=== PATIENT | male | born 1960 | race Caucasian/White ===

== ENCOUNTER 2018-01-09 05:53 | Inpatient (IN) | payer OTHER ==
[~2018-01-09] VITALS: Ht 185.4 cm; Wt 87.1 kg
[2018-01-09] VITALS (12 sets, daily range): BP systolic 104–134; BP diastolic 51–88
[2018-01-09] MEDS ORDERED: oxyCONTIN 20mg tab ORAL SCH (06:00)
[2018-01-09] MEDS ORDERED: ceFAZolin 1gm in D5W 55ml IVP ONE (06:00)
[2018-01-09] MEDS ORDERED: celeBREX 200mg Cap **SURGERY PATIENTS ONLY ORAL SCH (06:00)
--- NOTE | 2018-01-09 06:06 | Anethesia Preoperative Eval ---
Anesthesia Pre-op PMH/ROS General Date of Evaluation: Jan 09, 2018 Anesthesiologist: Andre ASA Score: ASA 2 Mallampati Score Class I : Soft palate, uvula, fauces, pillars visible Class II: Soft palate, uvula, fauces visible Class III: Soft palate, base of uvula visible Class IV: Only hard plate visible Mallampati Classification: Class II Surgeon: Ines Diagnosis: Right hip OA Surgical Procedure: Right total hip arthroplasty Anesthesia History: none Family History: no anesthesia problems Allergies: Coded Allergies: No Known Allergies (Unverified , 01/08/18) Medications: see eMAR Past Medical History Cardiovascular: Reports: HTN; Denies: CAD, DC, valve dz, arrhythmia, other Pulmonary: Denies: asthma, COPD, ADRIANNE, other Gastrointestinal/Genitourinary: Denies: GERD, CRI, ESRD, other Neurologic/Psychiatric: Denies: dementia, CVA, depression/anxiety, TIA, other Endocrine: Denies: DM, hypothyroidism, steroids, other HEENT: Denies: cataract (L), cataract (R), glaucoma, [place] (L), [place] (R), other Hematology/Immune: Reports: other - HIV, hep B; Denies: anemia, DVT, bleeding disorder Musculoskeletal/Integumentary: Reports: OA; Denies: RA, DJD, DDD, edema, other Anesthesia Pre-op Phys. Exam Physician Exam see chart Constitutional: NAD Cardiovascular: RRR Respiratory: CTA Airway Exam Mallampati Score: Class II MO: full ROM: full Teeth: intact Anesthesia Pre-op A/P Labs see chart Studies Pre-op Studies: EKG - sr Risk Assessment & Plan Assessment: ASA II Plan: SAB with GA Status Change Before Surgery: No Pre-Antibiotics Drug: Ancef 2g Given Within 1 Hr of Incision: Yes Connie Toscano MD Jan 09, 2018 06:06
[2018-01-09] MEDS ORDERED: Bacitracin 50000 Units Vial ONE (06:37)
[2018-01-09] MEDS ORDERED: NeoSporin Gu Irrig 1ml Amp IRRIG ONE (06:37)
[2018-01-09] MEDS ORDERED: Midazolam 2mg/2ml Inj ONE (06:41)
[2018-01-09] MEDS ORDERED: fentaNYL 100 mcg/2 mL IV ONE (06:41)
[2018-01-09] MEDS ORDERED: Propofol 200mg/20ml IV ONE (06:41)
[2018-01-09] MEDS ORDERED: Lidocaine 1% MPF 10mg/ml 5ml ONE (06:41)
[2018-01-09] MEDS ORDERED: cloNIDine 1000mcg/10ml inj ONE (06:45)
[2018-01-09] MEDS ORDERED: EPINEPHrine 1mg/1ml Amp ONE ×2 (06:45→07:00)
[2018-01-09] MEDS ORDERED: Zemuron 50mg/5ml Inj IV ONE (06:49)
[2018-01-09] MEDS ORDERED: Succinylcholine 20mg/ml 10ml vial ONE (06:49)
[2018-01-09] MEDS ORDERED: Bupivacaine 0.5% Inj 30 ml vial INJ ONE ×2 (06:49→07:01)
--- NOTE | 2018-01-09 06:52 | Pre-Procedure Note/Attestation ---
Pre-Procedure Note/Attestation Complete Prior to Procedure Planned Procedure: right Procedure Narrative: rt JUDI Indications for Procedure Pre-Operative Diagnosis: Rt hip arthritis Attestation I attest that I discussed the nature of the procedure; its benefits; risks and complications; and alternatives (and the risks and benefits of such alternatives ), prior to the procedure, with the patient (or the patient's legal registered representative). I attest that, if there was a reasonable possibility of needing a blood transfusion, the patient (or the patient's legal registered representative) was given the [facility] standardized written summary, pursuant to the [employer] Blood Safety Act ([place] Health and Safety Code # 1645, as amended). I attest that I re-evaluated the patient just prior to the surgery and that there has been no change in the patient's H&P, except as documented below: NONE Alirio Chacon MD Jan 09, 2018 06:52
[2018-01-09] MEDS ORDERED: Morphine Sulfate 2mg/ml Inj IVP PRN (07:00)
[2018-01-09] MEDS ORDERED: Sterile Water Irrig 1000ml IRRIG ONE (07:00)
[2018-01-09] MEDS ORDERED: Morphine Sulfate 4mg/ml Inj IVP PRN (07:00)
[2018-01-09] MEDS ORDERED: Milk of Magnesia 30ml Ud ORAL PRN (07:00)
[2018-01-09] MEDS ORDERED: LR 1000ml ONE (07:00)
[2018-01-09] MEDS ORDERED: NS Irrig 1000ml ONE (07:00)
[2018-01-09] MEDS ORDERED: ATORVASTATIN CA10 MG ORAL (07:06)
[2018-01-09] MEDS ORDERED: ODEFSEY PO (07:06)
[2018-01-09] MEDS ORDERED: LISINOPRIL20 MG ORAL (07:06)
[2018-01-09] MEDS ORDERED: LR 1000ml 1,000 ML IVLG SCH (07:41)
[2018-01-09] MEDS ORDERED: fentaNYL 100 mcg/2 mL IV PRN (07:45)
[2018-01-09] MEDS ORDERED: DiphenhydrAMINE 50mg/ml Inj IVP PRN (07:45)
[2018-01-09] MEDS ORDERED: Hydromorphone 0.5mg/0.5ml inj IVP PRN (07:45)
[2018-01-09] MEDS ORDERED: Labetalol 5mg/ml 20ml vial IV PRN (07:45)
[2018-01-09] MEDS ORDERED: Tranexamic Acid 1,000 MG in NS 65 ML IVPB ONE (08:00)
[2018-01-09] MEDS ORDERED: ePHEDrine 50mg/ml Inj ONE (08:03)
[2018-01-09] MEDS: Docusate 100mg cap ORAL SCH ×3 (09:00→18:00)
--- NOTE | 2018-01-09 09:29 | Brief Operative Note ---
Immediate Post Operative Note Operative Note Chief Complaint: rt hip pain Pre-op Diagnosis: rt hip arthritis Procedure: rt JUDI Post-op Diagnosis: same as pre-op Findings: consistent w/pre-op dx studies Surgeon: md xander Home Office Representative: cheryl monroy Anesthesiologist: md iraida Anesthesia: general Specimen: yes Complications: none Condition: stable Fluids: ns Estimated Blood Loss: minimal Drains: none Implant(s) used?: Yes - orourke and nephGay Martin Jan 09, 2018 09:29
--- NOTE | 2018-01-09 09:37 | Immediate Post-Op Evaluation ---
Immediate Post-Op Evalulation Immediate Post-Op Evalulation Procedure: Right total hip replacement Date of Evaluation: Jan 09, 2018 Time of Evaluation: 09:38 IV Fluids: 2.2L Blood Products: 0 Estimated Blood Loss: 150 Urinary Output: 150 Blood Pressure Systolic: 113 Blood Pressure Diastolic: 51 Pulse Rate: 59 Respiratory Rate: 14 O2 Sat by Pulse Oximetry: 100 Temperature (Fahrenheit): 97 Pain Score (1-10): 0 Nausea: No Vomiting: No Complications 0 Patient Status: awake, reacts, patent, none Hydration Status: adequate Drug: Ancef 2g Given Within 1 Hr of Incision: Yes Time Given: 07:20 Connie Tsocano MD Jan 09, 2018 09:37
--- NOTE | 2018-01-09 10:47 | Diagnostic Imaging Report ---
Indication: Status post right hip replacement Findings: Single AP view of the pelvis was performed. Right total hip arthroplasty demonstrated. Alignment and position on the basis of this single projection is unremarkable. Soft tissue air noted. Gallardo catheter is present. IMPRESSION: Status post right total hip arthroplasty
--- NOTE | 2018-01-09 10:58 | Diagnostic Imaging Report ---
Indication: Intraoperative imaging during right hip arthroplasty Findings: Single AP view of the pelvis was performed. Single portable partial image of the pelvis showing right hip during hip replacement surgery. There is a femoral spacer noted. Acetabular cup is in place. IMPRESSION: Intraoperative imaging
--- NOTE | 2018-01-09 11:30 | Operative Note - Dictated ---
DATE OF OPERATION: 01/09/2018 PREOPERATIVE DIAGNOSIS: Right hip end-stage arthritis. POSTOPERATIVE DIAGNOSIS: Right hip end-stage arthritis. PROCEDURE: Right total hip arthroplasty using Rice and Nephew system, size 54 R3 cup, size 7 Anthology stem, 20 mm lipped ultra cross-linked poly, with 2 dome screws, and a 36 mm+4 Oxinium head standard offset. SURGEON: Alirio Chacon M.D. HORSE RACE STARTER: Gay Mercer PA-C. ANESTHESIOLOGIST: Dr. Powell. ANESTHESIA: Spinal anesthesia. ESTIMATED BLOOD LOSS: Less than 20 mL. COMPLICATIONS: None. BRIEF HISTORY: The patient is a very pleasant 57-year-old gentleman, who has had ongoing right hip pain. He has had arthritis. He has had difficulty with ambulation. He has failed nonoperative treatment including injection, physical therapy, anti-inflammatories. After full discussion of the risks and benefits of the surgery and complications associated with it including infection, bleeding, neurovascular complication, possibility of continued pain, possibility of leg length discrepancy, DVT, need for revision surgery, infection requiring resection arthroplasty, PEs as well as neurological complications as well as need for revision surgeries due to wear, he opted for surgical treatment as described above. OPERATIVE PROCEDURE: The patient was brought to the operating table and was placed supine. Spinal anesthesia was induced and the patient was placed in left lateral decubitus position with the right hip up. All pressure points were well-padded and he was stabilized with peg holes. The right hip was prepped and draped in usual sterile fashion. Time-out was performed and preop antibiotics were given and tranexamic acid was given. Standard posterolateral approach to the hip was undertaken. The incision was taken through the subcutaneous tissue. The tensor fascia was opened and gluteus landon fascia was opened. Charnley retractors were placed in. The short external rotators were released and piriformis was released, and capsule was T'd. The capsules were tagged with #2 FiberWire suture for later closure. Once this was completed, the hip was dislocated. A standard neck cut was performed without any complication. At this point, the acetabular retractors were placed in and the labrum was resected. Sequential reaming was performed initially medializing slightly and then subsequently enlarging the reamers to a final size of 54 mm reamer. This provided excellent separation of the acetabulum, excellent contact with acetabular wall, and at this point, trialing with size 54 was performed and there was excellent fit and excellent stability. Approximately, 40 degrees of anteversion and 45 degrees of inclination was provided. Once this was completed, an R3 cup was then placed in with adequate anteversion and inclination as described and there was excellent stability. Two dome screws were placed in, one 25 mm and one 20 mm. Once this was completed, the acetabulum was then thoroughly irrigated using copious amount of fluid and using a 20-degree lip ultra cross-linked poly was then locked in without any complications. This provided excellent stability, it was checked and rechecked, and acetabular polyethylene had engaged well and there was no dislodging. Once this was completed, care was given to the femur. The acetabular retractors were removed. The femur was internally rotated. Calvert retractors were placed. Initially, canal finding was placed after lateralized entry and subsequently sequential broaching was performed from 0 to size 7. Size 7 provided excellent axial and rotational stability. Calcar reaming was performed and standard neck and initially a 0 length neck and subsequently a +4 neck was used. The +4 neck appeared to be excellent size. There was excellent leg length and good stability at 0, 30 degrees, 45 degrees, and 70 degrees internal rotation with hip in neutral abduction. At this point, leg lengths checked as measured by the knee and heel, and there was excellent. There was no pistoning. The range of motion was excellent. Stability was excellent. At this point, all wounds were thoroughly irrigated. Intraoperative x-rays were obtained and canal appeared to be filled, anteversion, inclination, and canal fill and all implant placement was excellent. At this point, the trial implants were removed. The wounds were thoroughly irrigated and femur and acetabular cup were completely irrigated using Simpulse irrigation. At this point, the actual size 7 Anthology standard offset implant was then placed in about 10 degrees of anteversion without any complications. Once this was well-seated, a +4 Oxinium head was used and this was locked and the Helton taper was dried. This was locked in without any complications. At this point, the entire construct was reduced and range of motion, leg length stability were all checked and appeared to be perfect as described previously. At this point, all wounds were thoroughly irrigated again with Simpulse irrigation. The short external rotators and capsule was closed through drill holes into the greater trochanter. The tensor fascia was closed using #1 Vicryl suture. Skin was closed using 2-0 Vicryl suture and 3-0 Monocryl suture. Steri-Strips were applied and Dermabond was applied. The patient tolerated the procedure well without any complication and an abduction pillow was placed and the patient was placed on the operating room table without any complication and was taken to recovery room in stable condition. All lap counts and instrument counts were correct. Alirio Francisca Chacon DR: Lenny JOB#: [id number] CC:
[2018-01-09] MEDS ORDERED: D5 1/2NS w/KCl 20mEq 1,000 ML IV SCH (14:00)
[2018-01-09] MEDS: ceFAZolin 2gm/50ml Premix 50 ML IV SCH ×2 (14:14→23:30)
[2018-01-09] MEDS: Morphine Sulfate 2mg/ml Inj IVP PRN ×3 (14:31→21:59)
--- NOTE | 2018-01-09 19:49 | Consultation ---
History of Present Illness General Date patient seen: Jan 09, 2018 Time patient seen: 19:46 Chief Complaint: medical post op consult. Present Illness Allergies: Coded Allergies: No Known Allergies (Unverified , 01/08/18) Medication History Scheduled Atorvastatin Calcium* (Lipitor*), 10 MG ORAL BEDTIME, (Reported) Lisinopril (Lisinopril*), 20 MG ORAL DAILY, (Reported) [Odefsey], PO SERA, (Reported) Patient History Healthcare decision maker [employer]OVANNI[employer]NER Resuscitation status Full Code Advanced Directive on File Past Medical/Surgical History Past Medical/Surgical History: (1) Hypertension (2) HIV (human immunodeficiency virus infection) Review of Systems Constitutional: Reports: no symptoms Eye: Reports: no symptoms ENT: Reports: no symptoms Respiratory: Reports: no symptoms Cardiovascular: Reports: no symptoms Gastrointestinal: Reports: no symptoms ROS Narrative has guadalupe epain social history: works in [employer] no aalcohol abuse medicaiton: lisnipril lipitor odefsui hiv med Physical Exam General Appearance: WD/WN, no apparent distress HEENT: normocephalic, atraumatic Neck: normal alignment Respiratory/Chest: lungs clear Cardiovascular/Chest: normal rate, regular rhythm, no JVD Abdomen: non tender, soft Extremities: other - no edema Last 24 Hour Vital Signs Date Time Temp Pulse Resp B/P (MAP) Pulse Ox O2 Delivery O2 Flow Rate FiO2 01/09/18 16:00 98.0 83 18 124/62 (82) 100 98.0 01/09/18 12:00 98.0 72 19 121/81 (94) 95 98.0 01/09/18 11:00 97.2 53 19 107/70 (82) 100 97.2 01/09/18 10:25 98.2 61 22 113/62 100 Nasal Cannula 3 98.2 01/09/18 10:15 59 15 107/60 100 Nasal Cannula 3 01/09/18 10:00 56 16 106/60 100 Nasal Cannula 3 01/09/18 09:50 60 18 106/57 100 Nasal Cannula 3 01/09/18 09:43 62 15 104/60 100 Simple Mask 6 01/09/18 09:38 53 21 105/63 100 Simple Mask 6 01/09/18 09:37 206.6 59 14 100 01/09/18 09:33 97.0 59 14 113/51 100 Simple Mask 6 97.0 01/09/18 06:30 98.1 64 20 134/88 (103) 95 98.1 01/09/18 06:24 Room Air Height (Feet): 6 Height (Inches): 1.00 Weight (Pounds): 192 Medications Current Medications Medications (Trade) Dose Ordered Sig/Stan Route PRN Reason Start Time Stop Time Status Last Admin Dose Admin Acetaminophen (Tylenol) 650 mg Q4H PRN ORAL Mild Pain (Pain Scale 1-3) 01/09/18 07:00 02/08/18 06:59 Acetaminophen (Tylenol) 650 mg Q4H PRN ORAL temp>100 01/09/18 07:00 02/08/18 06:59 Acetaminophen/ Hydrocodone Bitart (Telephone 5/325) 2 tab Q6H PRN ORAL Severe Pain (Pain Scale 7-10) 01/09/18 07:00 01/16/18 06:59 Acetaminophen/ Hydrocodone Bitart (Telephone 7.5/325) 1 tab Q4H PRN ORAL Moderate Pain (Pain Scale 4-6) 01/09/18 07:00 01/16/18 06:59 Cefazolin Sodium 50 ml @ 100 mls/hr Q8H IV 01/09/18 15:00 01/09/18 23:29 01/09/18 14:14 Celecoxib (CeleBREX) 200 mg DAILY ORAL 01/10/18 09:00 02/09/18 08:59 Docusate Sodium (Colace) 100 mg THREE TIMES A DAY ORAL 01/09/18 09:00 02/08/18 08:59 Enoxaparin Sodium (Lovenox) 40 mg DAILY SUBQ 01/10/18 09:00 02/09/18 08:59 Ferrous Sulfate (Feosol) 325 mg THREE TIMES A DAY ORAL 01/09/18 13:00 02/08/18 12:59 01/09/18 18:10 Magnesium Hydroxide (Mom) 30 ml DAILYPRN PRN ORAL Constipation 01/09/18 07:00 02/08/18 06:59 Morphine Sulfate (Morphine Sulfate) 1 mg Q3H PRN IVP Pain scale 1-3 01/09/18 07:00 01/16/18 06:59 Morphine Sulfate (Morphine Sulfate) 2 mg Q3H PRN IVP Moderate Pain (Pain Scale 4-6) 01/09/18 07:00 01/16/18 06:59 01/09/18 18:11 Morphine Sulfate (Morphine Sulfate) 4 mg Q3H PRN IVP Severe Pain (Pain Scale 7-10) 01/09/18 07:00 01/16/18 06:59 Oxycodone HCl (OxyCONTIN) 20 mg EVERY 12 HOURS ORAL 01/09/18 21:00 01/16/18 20:59 Prochlorperazine (Compazine) 10 mg Q6H PRN IVP Nausea & Vomiting 01/09/18 07:00 02/08/18 06:59 Temazepam (Restoril) 15 mg HSPRN PRN ORAL Insomnia 01/09/18 07:00 01/16/18 06:59 Assessment/Plan Status Narrative s/p thr hyperteniosn hyperlipid HIV Assessment/Plan perioperative antibiotic prophylaxis paincontorl PT OT DVT PROPHYLAXIS will moniitor [place] ok to take hiv medicaiton from home if not on forumulary. Wilmar Moreno MD Jan 09, 2018 19:49
[2018-01-09] MEDS: oxyCONTIN 20mg tab ORAL SCH (20:56)
[2018-01-10 00:18] VITALS: BP 122/72
[2018-01-10 04:02] VITALS: BP 127/73
[2018-01-10 07:50] LABS: BASOPHILS % (AUTO) 0.5 % (0.0-2.0); EOSINOPHILS % (AUTO) 0.4 % (0.0-3.0); HEMATOCRIT 36.8 % (42.0-52.0); HEMOGLOBIN 13.4 G/DL (14.2-18.0); LYMPHOCYTES % (AUTO) 15.2 % (20.0-45.0); MEAN CORPUSCULAR VOLUME 91 FL (80-99); MONOCYTES % (AUTO) 10.2 % (1.0-10.0); NEUTROPHILS % (AUTO) 73.8 % (45.0-75.0); PLATELET COUNT 170 K/UL (150-450); RED BLOOD COUNT 4.05 M/UL (4.70-6.10); RED CELL DISTRIBUTION WIDTH 10.3 % (11.6-14.8); WHITE BLOOD COUNT 7.7 K/UL (4.8-10.8)
[2018-01-10 07:53] LABS: ANION GAP 7 mmol/L (5-15); BLOOD UREA NITROGEN 14 mg/dL (7-18); CALCIUM 8.1 MG/DL (8.5-10.1); CARBON DIOXIDE 28 MMOL/L (21-32); CHLORIDE 105 MMOL/L (98-107); CREATININE 0.7 MG/DL (0.55-1.30); POTASSIUM 3.8 MMOL/L (3.5-5.1); SODIUM 140 MMOL/L (136-145)
[2018-01-10 08:00] VITALS: BP 121/81
--- NOTE | 2018-01-10 08:10 | Orthopedic Progress Note ---
Orthopedic - Progress Note Subjective Symptoms: c/o post-op hip pain, other - working with PT Objective Vital Signs Laboratory Tests Test 01/10/18 06:40 White Blood Count Pending Red Blood Count Pending Hemoglobin Pending Hematocrit Pending Mean Corpuscular Volume Pending Mean Corpuscular Hemoglobin Pending Mean Corpuscular Hemoglobin Concent Pending Red Cell Distribution Width Pending Platelet Count Pending Mean Platelet Volume Pending Neutrophils (%) (Auto) Pending Lymphocytes (%) (Auto) Pending Monocytes (%) (Auto) Pending Eosinophils (%) (Auto) Pending Basophils (%) (Auto) Pending Sodium Level 140 MMOL/L (136-145) Potassium Level 3.8 MMOL/L (3.5-5.1) Chloride Level 105 MMOL/L (98-107) Carbon Dioxide Level 28 MMOL/L (21-32) Anion Gap 7 mmol/L (5-15) Blood Urea Nitrogen 14 mg/dL (7-18) Creatinine 0.7 MG/DL (0.55-1.30) Estimat Glomerular Filtration Rate > 60 mL/min (>60) Glucose Level 106 MG/DL (74-106) Calcium Level 8.1 MG/DL (8.5-10.1) L Last 24 Hour Vital Signs Date Time Temp Pulse Resp B/P (MAP) Pulse Ox O2 Delivery O2 Flow Rate FiO2 01/10/18 04:02 97.9 85 18 127/73 (91) 95 97.9 01/10/18 00:18 98.1 69 17 122/72 (89) 94 98.1 01/09/18 21:00 Room Air 01/09/18 20:25 97.9 74 18 127/69 (88) 94 97.9 01/09/18 16:00 98.0 83 18 124/62 (82) 100 98.0 01/09/18 12:00 98.0 72 19 121/81 (94) 95 98.0 01/09/18 11:00 97.2 53 19 107/70 (82) 100 97.2 01/09/18 10:25 98.2 61 22 113/62 100 Nasal Cannula 3 98.2 01/09/18 10:15 59 15 107/60 100 Nasal Cannula 3 01/09/18 10:00 56 16 106/60 100 Nasal Cannula 3 01/09/18 09:50 60 18 106/57 100 Nasal Cannula 3 01/09/18 09:43 62 15 104/60 100 Simple Mask 6 01/09/18 09:38 53 21 105/63 100 Simple Mask 6 01/09/18 09:37 206.6 59 14 100 01/09/18 09:33 97.0 59 14 113/51 100 Simple Mask 6 97.0 I&O Intake and Output 01/09/18 01/10/18 19:00 07:00 Intake Total 2700 ml 530 ml Output Total 1850 ml 900 ml Balance 850 ml -370 ml Intake Oral 200 ml 480 ml IV Total 2400 ml 50 ml Other 100 ml Output Urine Total 1700 ml 900 ml Stool Total 0 ml Estimated Blood Loss 150 ml # Voids 1 Wound: clean, dry, intact Drains: none Neuro Status: normal Vascular Status: normal Additional Comments Xray reviewed- excellent Assessment Post-op Diagnosis POD 1 Procedure Performed rt JUDI Plan Plan: PT, pain management, discharge plan - to home with services and DME on Monday Gay Mercer Jan 10, 2018 08:10
--- NOTE | 2018-01-10 08:16 | 48 Hour Post Anesthesia Eval ---
Post Anesthesia Evaluation Procedure: Right total hip replacement Date of Evaluation: Jan 10, 2018 Time of Evaluation: 07:15 Blood Pressure Systolic: 127 0: 73 Pulse Rate: 85 Respiratory Rate: 18 Temperature (Fahrenheit): 97.9 O2 Sat by Pulse Oximetry: 95 Airway: patent Nausea: No Vomiting: No Pain Intensity: 2 Hydration Status: adequate Cardiopulmonary Status: at [place] Mental Status/LOC: patient returned to baseline Post-Anesthesia Complications: 0 Follow-up care needed: N/A - further care as per primary team Connie Toscano MD Jan 10, 2018 08:16
[2018-01-10] MEDS: Lisinopril 20mg tab ORAL SCH (09:00)
[2018-01-10] MEDS: oxyCONTIN 20mg tab ORAL SCH ×2 (09:00→21:31)
[2018-01-10] MEDS: Docusate 100mg cap ORAL SCH ×3 (09:00→18:20)
[2018-01-10] MEDS: celeBREX 200mg Cap **SURGERY PATIENTS ONLY ORAL SCH (09:01)
[2018-01-10] MEDS: Enoxaparin 40mg Inj SUBQ SCH (09:06)
[2018-01-10 12:00] VITALS: BP 129/79
[2018-01-10] MEDS: HYDROcodone/Acetamin 7.5/325 tab ORAL PRN (12:58)
[2018-01-10 16:00] VITALS: BP 133/78
[2018-01-10 20:00] VITALS: BP 132/78
--- NOTE | 2018-01-10 21:41 | Consultation ---
Consult Note Consult Note patient is s/p totalhip arthroplasty leonides any ches tpain denies any headache has somepain nonausea no vomiting AVSS no jvd cta s1,s2,rrr sofft Assessment/Plan s/p THrR perioperative blood loss HIV PT Ot dvt prophyalxis yunjderstands not to suibmerge body under water till 3 months after surgery perioperative prophylaxis given AAOs sera procedure antibiotic prophylaxis guide line discussed. doing well. Wilmar Moreno MD Jan 10, 2018 21:41
[2018-01-11] VITALS: BP 129/76
[2018-01-11] MEDS: HYDROcodone/Acetamin 7.5/325 tab ORAL PRN ×2 (02:02→09:11)
[2018-01-11 04:00] VITALS: BP 143/91
[2018-01-11 07:53] LABS: BASOPHILS % (AUTO) 0.6 % (0.0-2.0); EOSINOPHILS % (AUTO) 1.3 % (0.0-3.0); HEMATOCRIT 40.1 % (42.0-52.0); HEMOGLOBIN 14.2 G/DL (14.2-18.0); LYMPHOCYTES % (AUTO) 18.9 % (20.0-45.0); MEAN CORPUSCULAR VOLUME 92 FL (80-99); MONOCYTES % (AUTO) 10.6 % (1.0-10.0); NEUTROPHILS % (AUTO) 68.6 % (45.0-75.0); PLATELET COUNT 185 K/UL (150-450); RED BLOOD COUNT 4.36 M/UL (4.70-6.10); RED CELL DISTRIBUTION WIDTH 10.9 % (11.6-14.8); WHITE BLOOD COUNT 8.4 K/UL (4.8-10.8)
[2018-01-11 08:00] VITALS: BP 137/74
--- NOTE | 2018-01-11 08:41 | Orthopedic Progress Note ---
Orthopedic - Progress Note Subjective Symptoms: c/o post-op hip pain Objective Vital Signs Last 24 Hour Vital Signs Date Time Temp Pulse Resp B/P (MAP) Pulse Ox O2 Delivery O2 Flow Rate FiO2 01/11/18 04:00 98.9 89 18 143/91 (108) 94 98.9 01/11/18 00:00 97.4 85 18 129/76 (93) 99 97.4 01/10/18 21:00 Room Air 01/10/18 20:00 97.6 87 18 132/78 (96) 96 97.6 01/10/18 16:00 98.4 74 20 133/78 (96) 97 98.4 01/10/18 12:00 98.0 82 20 129/79 (96) 94 98.0 01/10/18 09:00 Room Air 01/10/18 09:00 121/81 I&O Intake and Output 01/10/18 01/11/18 19:00 07:00 Intake Total 320 ml 480 ml Balance 320 ml 480 ml Intake Oral 320 ml 480 ml # Voids 3 Wound: clean, dry, intact Drains: none Neuro Status: normal Assessment Post-op Diagnosis doing Great s/p Right JUDI Plan Plan: PT, pain management, discharge plan Alirio Chacon MD Jan 11, 2018 08:41
[2018-01-11] MEDS: Lisinopril 20mg tab ORAL SCH (09:12)
[2018-01-11] MEDS: oxyCONTIN 20mg tab ORAL SCH ×2 (09:12→20:19)
[2018-01-11] MEDS: Docusate 100mg cap ORAL SCH ×3 (09:12→18:13)
[2018-01-11] MEDS: celeBREX 200mg Cap **SURGERY PATIENTS ONLY ORAL SCH (09:12)
[2018-01-11] MEDS: Enoxaparin 40mg Inj SUBQ SCH (09:13)
[2018-01-11 12:00] VITALS: BP 125/89
[2018-01-11 16:00] VITALS: BP 149/55
[2018-01-11] MEDS: Norco 5mg/325mg tab ORAL PRN ×2 (16:03→21:40)
[2018-01-11 20:00] VITALS: BP 136/78
--- NOTE | 2018-01-12 03:30 | Discharge Summary ---
DATE OF ADMISSION: 01/09/2018 HISTORY AND HOSPITAL COURSE: The patient was admitted to undergo total hip arthroplasty. The patient underwent total hip arthroplasty without any difficulty. Postoperatively, the patient had minimal blood loss. The patient was taken to the PACU and subsequently was taken to the floor. While being on the floor, the patient had been monitored, laboratory results were monitored. The patient did well. He had physical therapy and occupational therapy. The patient will be discharged home with DVT prophylaxis. The patient understands need for antibiotic prophylaxis for now. DISCHARGE DIAGNOSES: 1. Osteoarthritis of the hip. 2. Status post total hip arthroplasty. 3. Human immunodeficiency virus. nad no jvd cta s1,s2,rrr soft patint was not discharged on Wilmar Moreno M.D. DR: RAFAEL JOB#: [id number] CC: MIKAYLA
[2018-01-12 04:00] VITALS: BP 122/72
[2018-01-12] MEDS: HYDROcodone/Acetamin 7.5/325 tab ORAL PRN (04:18)
[2018-01-12 07:09] LABS: BASOPHILS % (AUTO) 0.7 % (0.0-2.0); EOSINOPHILS % (AUTO) 2.6 % (0.0-3.0); HEMATOCRIT 36.2 % (42.0-52.0); HEMOGLOBIN 13.1 G/DL (14.2-18.0); LYMPHOCYTES % (AUTO) 17.7 % (20.0-45.0); MEAN CORPUSCULAR VOLUME 92 FL (80-99); MONOCYTES % (AUTO) 12.2 % (1.0-10.0); NEUTROPHILS % (AUTO) 66.8 % (45.0-75.0); PLATELET COUNT 164 K/UL (150-450); RED BLOOD COUNT 3.92 M/UL (4.70-6.10); RED CELL DISTRIBUTION WIDTH 11.1 % (11.6-14.8); WHITE BLOOD COUNT 6.5 K/UL (4.8-10.8)
[2018-01-12 07:53] VITALS: BP_SYST 121; BP_DIAS 63; BP_DIAS 93
[2018-01-12] MEDS: Docusate 100mg cap ORAL SCH (07:57)
[2018-01-12 07:58] VITALS: BP 121/63
[2018-01-12] MEDS: celeBREX 200mg Cap **SURGERY PATIENTS ONLY ORAL SCH (07:58)
[2018-01-12] MEDS: Lisinopril 20mg tab ORAL SCH (07:58)
[2018-01-12] MEDS: Enoxaparin 40mg Inj SUBQ SCH (07:59)
--- NOTE | 2018-01-12 08:05 | Orthopedic Progress Note ---
Orthopedic - Progress Note Subjective Symptoms: improved Objective Vital Signs Laboratory Tests Test 01/12/18 05:05 White Blood Count 6.5 K/UL (4.8-10.8) Red Blood Count 3.92 M/UL (4.70-6.10) L Hemoglobin 13.1 G/DL (14.2-18.0) L Hematocrit 36.2 % (42.0-52.0) L Mean Corpuscular Volume 92 FL (80-99) Mean Corpuscular Hemoglobin 33.4 PG (27.0-31.0) H Mean Corpuscular Hemoglobin Concent 36.2 G/DL (32.0-36.0) H Red Cell Distribution Width 11.1 % (11.6-14.8) L Platelet Count 164 K/UL (150-450) Mean Platelet Volume 5.1 FL (6.5-10.1) L Neutrophils (%) (Auto) 66.8 % (45.0-75.0) Lymphocytes (%) (Auto) 17.7 % (20.0-45.0) L Monocytes (%) (Auto) 12.2 % (1.0-10.0) H Eosinophils (%) (Auto) 2.6 % (0.0-3.0) Basophils (%) (Auto) 0.7 % (0.0-2.0) Last 24 Hour Vital Signs Date Time Temp Pulse Resp B/P (MAP) Pulse Ox O2 Delivery O2 Flow Rate FiO2 01/12/18 07:58 121/63 01/12/18 07:53 97.7 76 18 121/93 (102) 92 97.7 01/12/18 05:17 96.8 01/12/18 04:18 96.8 01/12/18 04:00 98.6 77 18 122/72 (89) 92 98.6 01/12/18 04:00 98.6 77 18 122/72 (89) 92 98.6 01/11/18 22:39 96.8 01/11/18 21:40 96.8 01/11/18 21:18 96.8 01/11/18 21:00 Room Air 01/11/18 20:19 96.8 01/11/18 20:00 97.4 73 22 136/78 (97) 95 97.4 01/11/18 16:03 96.8 01/11/18 16:00 98.0 85 22 149/55 (86) 98.0 01/11/18 12:00 96.8 96 20 125/89 (101) 95 96.8 01/11/18 09:12 143/91 01/11/18 09:12 98.9 01/11/18 09:11 98.9 01/11/18 08:20 Room Air I&O Intake and Output 01/11/18 01/12/18 19:00 07:00 Intake Total 2500 ml 840 ml Output Total 200 ml Balance 2500 ml 640 ml Intake Oral 2500 ml 840 ml Output Urine Total 200 ml # Voids 3 2 Wound: clean, dry, intact Drains: none Neuro Status: normal Vascular Status: normal Assessment Post-op Diagnosis POD 3 Procedure Performed rt JUDI Plan Plan: discharge to home Gay Mercer Jan 12, 2018 08:05
[2018-01-12] MEDS: oxyCONTIN 20mg tab ORAL SCH (08:23)
--- NOTE | 2018-01-12 08:42 | General Progress Note ---
Assessment/Plan Status Narrative s/p TKr doing well Pt5 ot home with home pt. Subjective Date patient seen: Jan 12, 2018 Time patient seen: 08:41 Constitutional: Reports: no symptoms HEENT: Reports: no symptoms Cardiovascular: Reports: no symptoms Respiratory: Reports: no symptoms Allergies: Coded Allergies: No Known Allergies (Unverified , 01/08/18) Subjective doing well ready to go home Objective Last 24 Hour Vital Signs Date Time Temp Pulse Resp B/P (MAP) Pulse Ox O2 Delivery O2 Flow Rate FiO2 01/12/18 08:23 97.7 01/12/18 08:18 Room Air 01/12/18 07:58 121/63 01/12/18 07:53 97.7 76 18 121/63 (82) 92 97.7 01/12/18 05:17 96.8 01/12/18 04:18 96.8 01/12/18 04:00 98.6 77 18 122/72 (89) 92 98.6 01/12/18 04:00 98.6 77 18 122/72 (89) 92 98.6 01/11/18 22:39 96.8 01/11/18 21:40 96.8 01/11/18 21:18 96.8 01/11/18 21:00 Room Air 01/11/18 20:19 96.8 01/11/18 20:00 97.4 73 22 136/78 (97) 95 97.4 01/11/18 16:03 96.8 01/11/18 16:00 98.0 85 22 149/55 (86) 98.0 01/11/18 12:00 96.8 96 20 125/89 (101) 95 96.8 01/11/18 09:12 143/91 01/11/18 09:12 98.9 01/11/18 09:11 98.9 Intake and Output 01/11/18 01/12/18 19:00 07:00 Intake Total 2500 ml 840 ml Output Total 200 ml Balance 2500 ml 640 ml Intake Oral 2500 ml 840 ml Output Urine Total 200 ml # Voids 3 2 Laboratory Tests 01/12/18 05:05: White Blood Count 6.5, Red Blood Count 3.92L, Hemoglobin 13.1L, Hematocrit 36.2L , Mean Corpuscular Volume 92, Mean Corpuscular Hemoglobin 33.4H, Mean Corpuscular Hemoglobin Concent 36.2H, Red Cell Distribution Width 11.1L, Platelet Count 164, Mean Platelet Volume 5.1L, Neutrophils (%) (Auto) 66.8, Lymphocytes (%) (Auto) 17.7L, Monocytes (%) (Auto) 12.2H, Eosinophils (%) (Auto ) 2.6, Basophils (%) (Auto) 0.7 Height (Feet): 6 Height (Inches): 1.00 Weight (Pounds): 192 General Appearance: WD/WN Neck: non-tender Cardiovascular: normal rate, regular rhythm, no JVD Respiratory/Chest: lungs clear Wilmar Moreno MD Jan 12, 2018 08:42
[2018-01-12] MEDS ORDERED: Sterile Water Irrig 1000ml IRRIG ONE (10:50)
[2018-01-12] MEDS ORDERED: LR 1000ml ONE (10:50)
[2018-01-12] MEDS ORDERED: Tubing IV Secondary IV ONE (10:50)
== END 2018-01-12 10:51 | disposition home health service (06) | DRG 470 ==
LOC: SDSOVERFLO 05:53 → 3E 10:49
PROC: 0SR906A Replacement of Right Hip Joint with Oxidized Zirconium on Polyethylene Synthetic Substitute, Uncemented, Open Approach (ICD-10-PCS; principal; 2018-01-09 07:00)
DX: M16.11 Unilateral primary osteoarthritis, right hip (principal); B18.1 Chronic viral hepatitis B without delta-agent; E78.5 Hyperlipidemia, unspecified; I10 Essential (primary) hypertension; E29.1 Testicular hypofunction; F32.9 Major depressive disorder, single episode, unspecified; G47.00 Insomnia, unspecified; K21.9 Gastro-esophageal reflux disease without esophagitis
CPT/HCPCS: 36415; 72170; 80048; 85025; 86850; 86900; 86901; 86920; 87081; 94003; 94150; J2250; J2405

== ENCOUNTER 2018-01-30 10:00 | Outpatient (RCR) | payer OTHER ==
[~2018-01-30 10:00] MED LIST: ATORVASTATIN CA10 MG ORAL; LISINOPRIL20 MG ORAL; ODEFSEY PO
== END 2018-02-23 | disposition home or self-care (01) ==
LOC: PTY 10:00
DX: Z96.641 Presence of right artificial hip joint (principal); I10 Essential (primary) hypertension

== ENCOUNTER 2018-03-01 09:10 | Outpatient (RCR) | payer OTHER | END 2018-03-25 | disposition home or self-care (01) | LOC: PTY 09:10 | DX: Z47.1 Aftercare following joint replacement surgery (principal); M16.11 Unilateral primary osteoarthritis, right hip; Z96.631 Presence of right artificial wrist joint; I10 Essential (primary) hypertension; M19.90 Unspecified osteoarthritis, unspecified site; K75.9 Inflammatory liver disease, unspecified; B20 Human immunodeficiency virus [HIV] disease ==